=== PATIENT | male | born 1945 | race African-American/Black ===

== ENCOUNTER 2017-09-30 18:57 | Emergency (ER) | payer MEDICARE ==
[~2017-09-30] VITALS: Ht 180.3 cm; Wt 96.2 kg
[2017-09-30] MEDS ORDERED: ATOR20TA58 PO (19:39)
[2017-09-30] MEDS ORDERED: ASPI-482 PO (19:41)
[2017-09-30] MEDS ORDERED: IRBE150T3 PO (19:41)
[2017-09-30] MEDS ORDERED: LATA2.5D3 EACHEYE (19:41)
[2017-09-30] MEDS ORDERED: SILO8CAP PO (19:41)
[2017-09-30 20:49] LABS: BASO % 0 % (0-3); EOS % 0 % (0-3); HEMATOCRIT 46.9 % (39.0-53.0); HEMOGLOBIN 15.6 g/dL (13.0-17.5); LYMPH # 0.5 x10^3/uL (1.0-4.8); LYMPH % 11 % (24-48); MEAN CORPUSCULAR HEMOGLOBIN 30 pg (25-35); MEAN CORPUSCULAR HGB CONC 33 g/dL (31-37); MEAN CORPUSCULAR VOLUME 90 fL (79-100); MONO % 10 % (0-9); NEUT % 78 % (31-73); PLATELET COUNT 108 x10^3/uL (140-400); RED BLOOD COUNT 5.22 x10^6/uL (4.30-5.70); RED CELL DISTRIBUTION WIDTH 14.3 % (11.5-14.5); WHITE BLOOD COUNT 4.3 x10^3/uL (4.0-11.0)
--- NOTE | 2017-09-30 20:50 | PHYS DOC ---
Past Medical History Past Medical History: High Cholesterol Additional Past Medical Histor: enlarged prostate,lymphoma, chemo Additional Past Surgical Histo: surgery to right chest for lymphoma ( biopsy) Alcohol Use: Rarely Drug Use: None Adult General Chief Complaint Chief Complaint: Congestion HPI HPI Patient is a 72 year old male who presents with 4 days mild to moderate cough congestion and subjective fever although was measured prior to arrival at 102; no nausea vomiting diarrhea or chest pain; no dysuria or frequency or flank pain. Nonsmoker no history of COPD or heart failure or heart disease. No history of diabetes. No leg pain or swelling. No headache or sore throat or stiff neck. No skin rashes or specific joint pains. Review of Systems Review of Systems Constitutional: Denies fever or chills [] Eyes: Denies change in visual acuity, redness, or eye pain [] HENT: Denies nasal congestion or sore throat [] Respiratory: Denies cough or shortness of breath [] Cardiovascular: No additional information not addressed in HPI [] GI: Denies abdominal pain, nausea, vomiting, bloody stools or diarrhea [] : Denies dysuria or hematuria [] Musculoskeletal: Denies back pain or joint pain [] Integument: Denies rash or skin lesions [] Neurologic: Denies headache, focal weakness or sensory changes [] Endocrine: Denies polyuria or polydipsia [] All other systems were reviewed and found to be within normal limits, except as documented in this note. Current Medications Current Medications Current Medications Medications (Trade) Dose Ordered Sig/Reyes Start Time Stop Time Status Last Admin Dose Admin Acetaminophen (Tylenol) 1,000 mg 1X ONCE 09/30/17 22:30 09/30/17 22:31 09/30/17 22:15 1,000 MG Ceftriaxone Sodium 50 ml @ 100 mls/hr 1X ONCE 09/30/17 22:30 09/30/17 22:59 09/30/17 22:16 100 MLS/HR Allergies Allergies Allergies Coded Allergies Type Severity Reaction Last Updated Verified No Known Drug Allergies 09/30/17 No Physical Exam Physical Exam Constitutional: Well developed, well nourished, no acute distress, non-toxic appearance. [] HENT: Normocephalic, atraumatic, bilateral external ears normal, oropharynx moist, no oral exudates, nose normal. [] Eyes: PERRLA, EOMI, conjunctiva normal, no discharge. [] Neck: Normal range of motion, no tenderness, supple, no stridor. [] Cardiovascular:Heart rate regular rhythm, no murmur [] Lungs & Thorax: Bilateral breath sounds clear to auscultation [] Abdomen: Bowel sounds normal, soft, no tenderness, no masses, no pulsatile masses. [] Skin: Warm, dry, no erythema, no rash. [] Back: No tenderness, no CVA tenderness. [] Extremities: No tenderness, no cyanosis, no clubbing, ROM intact, no edema. [] Neurologic: Alert and oriented X 3, normal motor function, normal sensory function, no focal deficits noted. [] Psychologic: Affect normal, judgement normal, mood normal. [] Current Patient Data Vital Signs Vital Signs Date Time Temp Pulse Resp B/P (MAP) Pulse Ox O2 Delivery O2 Flow Rate FiO2 09/30/17 21:57 101.5 83 18 132/65 (87) 92 Room Air 101.5 Lab Values Laboratory Tests Test 09/30/17 20:35 09/30/17 21:12 White Blood Count 4.3 x10^3/uL (4.0-11.0) Red Blood Count 5.22 x10^6/uL (4.30-5.70) Hemoglobin 15.6 g/dL (13.0-17.5) Hematocrit 46.9 % (39.0-53.0) Mean Corpuscular Volume 90 fL (79-100) Mean Corpuscular Hemoglobin 30 pg (25-35) Mean Corpuscular Hemoglobin Concent 33 g/dL (31-37) Red Cell Distribution Width 14.3 % (11.5-14.5) Platelet Count 108 x10^3/uL (140-400) L Neutrophils (%) (Auto) 78 % (31-73) H Lymphocytes (%) (Auto) 11 % (24-48) L Monocytes (%) (Auto) 10 % (0-9) H Eosinophils (%) (Auto) 0 % (0-3) Basophils (%) (Auto) 0 % (0-3) Neutrophils # (Auto) 3.3 x10^3uL (1.8-7.7) Lymphocytes # (Auto) 0.5 x10^3/uL (1.0-4.8) L Monocytes # (Auto) 0.4 x10^3/uL (0.0-1.1) Eosinophils # (Auto) 0.0 x10^3/uL (0.0-0.7) Basophils # (Auto) 0.0 x10^3/uL (0.0-0.2) Sodium Level 138 mmol/L (136-145) Potassium Level 4.7 mmol/L (3.5-5.1) Chloride Level 100 mmol/L (98-107) Carbon Dioxide Level 30 mmol/L (21-32) Anion Gap 8 (6-14) Blood Urea Nitrogen 14 mg/dL (8-26) Creatinine 1.4 mg/dL (0.7-1.3) H Estimated GFR (Cockcroft-Gault) 60.1 BUN/Creatinine Ratio 10 (6-20) Glucose Level 131 mg/dL (70-99) H Lactic Acid Level 1.2 mmol/L (0.4-2.0) Calcium Level 8.7 mg/dL (8.5-10.1) Total Bilirubin 0.7 mg/dL (0.2-1.0) Aspartate Amino Transferase (AST) 27 U/L (15-37) Alanine Aminotransferase (ALT) 29 U/L (16-63) Alkaline Phosphatase 45 U/L (46-116) L Total Protein 7.2 g/dL (6.4-8.2) Albumin 3.9 g/dL (3.4-5.0) Albumin/Globulin Ratio 1.2 (1.0-1.7) Urine Collection Type Unknown Urine Color Yellow Urine Clarity Cloudy Urine pH 5.5 Urine Specific [place] 1.020 Urine Protein Negative mg/dL (NEG-TRACE) Urine Glucose (UA) Negative mg/dL (NEG) Urine Ketones (Stick) Negative mg/dL (NEG) Urine Blood Negative (NEG) Urine Nitrite Negative (NEG) Urine Bilirubin Negative (NEG) Urine Urobilinogen Dipstick 1.0 mg/dL (0.2 mg/dL) Urine Leukocyte Esterase Negative (NEG) Urine RBC 0 /HPF (0-2) Urine WBC 0 /HPF (0-4) Urine Squamous Epithelial Cells Occ /LPF Urine Bacteria 0 /HPF (0-FEW) Urine Mucus Slight /LPF Laboratory Tests 09/30/17 20:35 Laboratory Tests 09/30/17 20:35 EKG EKG EKG normal sinus rhythm rate of 84 no STEMI QTC normal my interpretation[] Radiology/Procedures Radiology/Procedures Chest x-ray[] no acute cardiopulmonary process my interpretation Course & Med Decision Making Course & Med Decision Making Pertinent Labs and Imaging studies reviewed. (See chart for details) [Chest x-ray was negative]. White blood cell count normal lactic acid normal vital signs are stable with a reasonable pulse oximetry reading. We'll treat with Tamiflu and a Z-Vic. Reexam [id number]: Patient has a follow-up appointment with his primary care physician tomorrow. The patient and family are comfortable with this plan of going home. Dragon Disclaimer Dragon Disclaimer This electronic medical record was generated, in whole or in part, using a voice recognition dictation system. Departure Departure Impression: Primary Impression: Viral URI with cough Additional Impression: Fever Disposition: HOME, SELF-CARE Condition: IMPROVED Referrals: HENRY EPPERSON (PCP) Patient Instructions: Acute Bronchitis, [id number] Additional Instructions: please get follow up with your PCP in next 48 hours Scripts Oseltamivir Phosphate (TAMIFLU) 75 Mg Capsule 1 CAP PO BID for 5 Days, #10 CAP Prov: BRYAN FRANCO MD 09/30/17 Azithromycin (AZITHROMYCIN TABLET) 250 Mg Tablet 1 PKG PO UD, #6 TAB take two pills on day one, then one pill daily for next 4 days Prov: BRYAN FRANCO MD 09/30/17 Problem Qualifiers BRYAN FRANCO MD Sep 30, 2017 20:50
[2017-09-30 21:05] LABS: CALCIUM 8.7 mg/dL (8.5-10.1); CREATININE 1.4 mg/dL (0.7-1.3); GFR 60.1; POTASSIUM 4.7 mmol/L (3.5-5.1)
[2017-09-30 21:10] LABS: ALBUMIN 3.9 g/dL (3.4-5.0); ALBUMIN/GLOBULIN RATIO 1.2 (1.0-1.7); TOTAL BILIRUBIN 0.7 mg/dL (0.2-1.0); TOTAL PROTEIN 7.2 g/dL (6.4-8.2)
[2017-09-30 21:20] LABS: BILIRUBIN,URINE NEGATIVE (NEG); GLUCOSE,URINE NEGATIVE (NEG); NITRITE,URINE NEGATIVE (NEG); PH,URINE 5.5; PROTEIN,URINE NEGATIVE (NEG-TRACE)
[2017-09-30 21:29] LABS: BACTERIA,URINE 0 /HPF (0-FEW); RBC,URINE 0 /HPF (0-2); SQUAMOUS EPITHELIAL CELL,UR OCC /LPF; WBC,URINE 0 /HPF (0-4)
[2017-09-30] MEDS ORDERED: AZIT250T6 PO (22:15)
[2017-09-30] MEDS ORDERED: OSEL75CA PO (22:15)
[2017-09-30 22:29] VITALS: BP 153/75
[2017-09-30] MEDS ORDERED: ACETAMINOPHEN 500 MG TABLET PO ONE (22:30)
--- NOTE | 2017-10-01 06:54 | EKG ---
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
--- NOTE | 2017-10-01 08:04 | RAD ---
Portable chest, 09/30/2017: History: Cough, fever The heart size and pulmonary vascularity are normal. No pulmonary infiltrates are seen. There is no evidence of pleural fluid. Moderate spurring is present in the spine. IMPRESSION: No acute cardiopulmonary abnormality is detected.
== END 2017-09-30 22:54 | disposition home or self-care (01) ==
LOC: ER 18:57
DX: J06.9 Acute upper respiratory infection, unspecified (principal); R50.9 Fever, unspecified; E78.00 Pure hypercholesterolemia, unspecified
CPT/HCPCS: 36415; 71010; 80053; 81001; 83605; 85025; 87040; 93005; 96365; 99285; J0690